=== PATIENT | male | born 1990 | race Caucasian/White ===

== ENCOUNTER 2016-09-02 02:03 | Emergency (ER) | payer OTHER ==
--- NOTE | 2016-09-02 02:10 | CPEKG ---
Heart Rate: 101 RR Interval: 594 P-R Interval: 134 QRSD Interval: 98 QT Interval: 340 QTC Interval: 441 P Hamler: 38 QRS Hamler: 20 T Wave Hamler: 45 EKG Severity - OTHERWISE NORMAL ECG - EKG Impression: SINUS TACHYCARDIA Electronically Signed By: Bret Bonds 03-Sep-2016 07:48:52
[2016-09-02 02:13] VITALS: RESP 18; TEMP 98.1
--- NOTE | 2016-09-02 02:33 | EDPHY ---
H & P Stated Complaint: felt like "heart stopped beating" Time Seen by Provider: 09/02/16 02:08 HPI/ROS: Chief Complaint: Palpitations HPI: 26-year-old male was in bed tonight when his cat walked across his chest. Shortly after that he felt his heart skip a beat. Patient states that over the next couple of hours he has felt his heart pauses. Occasionally this happened this gave me this sensation of lightheadedness and slight discomfort in his chest. This was only fleeting. No states shortness of breath. Does not have a history of the same. Does not have a family history of coronary artery disease or sudden cardiac . Has been in his normal state of health. Does not have any past medical history. States he did smoke some marijuana before dinner but denies any other alcohol or drug use. States he has not felt this sensation since coming to the hospital. ROS: 10 point Review of Systems is negative except as noted in the HPI. PMH: None Medications: None Allergies: No known drug allergies Social History: Occasional smoking, occasional alcohol, occasional marijuana Family History: No family history of coronary artery disease or sudden Physical Exam: Gen: Awake, Alert, No Distress HEENT: Nose: no rhinorrhea Eyes: PERRLA, EOMI Mouth: Moist mucosa Neck: Supple, no JVD Chest: nontender, lungs clear to auscultation Heart: S1, S2 normal, no murmur Abd: Soft, non-tender, no guarding Back: no CVA tenderness, no midline tenderness Ext: no edema, non-tender Skin: no rash Neuro: CN II-XII intact, Sensation grossly intact, Strength 5/5 in bilateral upper and lower extremities - Personal History Current Tetanus/Diphtheria Vaccine: Yes Current Tetanus Diphtheria and Acellular Pertussis (TDAP): Yes - Medical/Surgical History Hx Asthma: No Hx Chronic Respiratory Disease: No Hx Diabetes: No Hx Cardiac Disease: No Hx Renal Disease: No Hx Cirrhosis: No Hx Alcoholism: No Hx HIV/AIDS: No Hx Splenectomy or Spleen Trauma: No Other PMH: denies - Social History Smoking Status: Never smoked Constitutional: Initial Vital Signs Temperature (C) 36.7 C 09/02/16 02:11 Heart Rate 104 H 09/02/16 02:11 Respiratory Rate 18 09/02/16 02:11 Blood Pressure 160/113 H 09/02/16 02:11 O2 Sat (%) 97 09/02/16 02:11 O2 Delivery Mode Room Air Allergies/Adverse Reactions: No Known Allergies Allergy (Unverified 09/02/16 02:11) Home Medications: Medication Instructions Recorded NK [No Known Home Meds] 09/02/16 Medical Decision Making - Diagnostics EKG Interpretation: ECG time 2:08 a.m. sinus tachycardia with a rate of 101, normal axis, normal intervals, no acute ST or T-wave changes. Impression: Normal ECG ED Course/Re-evaluation: I discussed at great length the patient that the symptoms are consistent with PVCs. He has been on the monitor here and I have not seen any ectopy during that time. His heart rates come down to 91 after I have reassured him. He has not have any risk factors for sudden or arrhythmia. He has a normal ECG. Symptoms are consistent with PVCs. Will discharge with referral for follow up with primary care. He will return for any concerns. Departure - Departure Disposition: Home, Routine, Self-Care Clinical Impression: Palpitations Condition: Good Instructions: Palpitations (ED) Additional Instructions: Return to the emergency department for chest pain, shortness of breath, fainting , or any other concerns. Follow up with primary care physician in 3-4 days for further evaluation. Referrals: José Escalera MD [Medical Doctor] - As per Instructions
[2016-09-02 02:46] VITALS: BP 145/96; PULSE 88; O2SAT 96
== END 2016-09-02 02:35 | disposition home or self-care (01) ==
DX: R00.2 Palpitations (principal); F17.200 Nicotine dependence, unspecified, uncomplicated